=== PATIENT | male | born 1960 | race Two or more races ===

== ENCOUNTER 2016-08-08 22:26 | Emergency (ER) | payer MEDICARE ==
[2016-08-08 23:09] LABS: ABSOLUTE NEUTROPHIL COUNT 7.3 K/mm3 (1.8-7.7); BASO % 0.4 % (0.2-1.0); EOS # 0.3 (0.0-0.5); EOS % 2.8 % (0.9-2.9); HEMATOCRIT 41.1 % (32.0-52.0); IMM NEUT% 0.3 % (0-1); LYMPH # 2.3 (1.0-4.8); MEAN CELL VOLUME 87.3 fl (80.0-94.0); MEAN CORPUSCULAR HEMOGLOBIN 29.7 pg (27.0-31.0); MEAN CORPUSCULAR HGB CONC 34.1 g/dl (33.0-37.0); MEAN PLATELET VOLUME 9.6 fl (7.4-10.4); MONO # 0.9 (0.0-0.8); MONO % 7.9 % (4-12); NEUT % 67.6 % (43-75); PLATELET COUNT 270 K/mm3 (130-400); RED CELL DISTRIBUTION WIDTH 12.2 % (11.5-14.5)
[2016-08-08 23:18] LABS: ALB/GLOB RATIO 1.2 (>1.0); ALBUMIN 4.1 gm/dL (3.5-5.7); CALCIUM 9.4 mg/dL (8.6-10.3)
[2016-08-08] MEDS ORDERED: ALBUTEROL/IPRATROPIUM 2.5/0.5 MG 3 ML/EACH DOSE ONE (23:25)
[2016-08-09] MEDS ORDERED: PREDNISONE 20 MG TABLET ONE (00:34)
[2016-08-09] MEDS ORDERED: AZITHROMYCIN 250 MG TABLET ONE (00:34)
--- NOTE | 2016-08-09 08:07 | RAD ---
EXAMINATION:CHEST - 2 VIEWS CLINICAL INDICATION:Pulmonary fibrosis COMPARISON: CT scan dated 03/24/2016. Chest radiographs dated 03/28/2016. FINDINGS: Cardiomediastinal silhouette is unchanged from the prior study. There is no adenopathy identified. There is no pleural effusion. Extensive reticular nodular opacities compatible with pulmonary fibrosis is again noted. Elevation of right hemidiaphragm with volume loss is similar. Slight retraction of the right superior mediastinum to the right is unchanged. There is no visible pneumothorax. No gross superimposed infiltrate is seen. The osseous structures are unremarkable for age. The bowel gas pattern is nonspecific. Air-fluid levels are noted. Gas-filled loops of small bowel are present. There is no free intraperitoneal air suggested on this study. IMPRESSION: 1. Extensive pulmonary fibrosis with little change in comparison to 03/17/2016. 2. No superimposed acute process is identified. 3. Right-sided volume loss which may reflect postsurgical changes versus fibrosis. 4. Nonspecific bowel gas pattern with air-fluid levels and gas-filled loops of small bowel.
== END 2016-08-09 00:58 | disposition home or self-care (01) ==
LOC: ED 22:26
DX: J40 Bronchitis, not specified as acute or chronic (principal); K21.9 Gastro-esophageal reflux disease without esophagitis; J84.10 Pulmonary fibrosis, unspecified; Z79.891 Long term (current) use of opiate analgesic; Z79.51 Long term (current) use of inhaled steroids; Z79.899 Other long term (current) drug therapy
CPT/HCPCS: 85025; 80053; 71020; 94640; 99284 ×2; 93005; J7512; A9270